=== PATIENT | female | born 1965 | race Caucasian/White ===

== ENCOUNTER 2023-03-26 19:42 | Emergency (ER) | payer BC, SELFPAY ==
[2023-03-26 19:43] VITALS: BP 159/111; PULSE 106; RESP 22; TEMP 36; O2SAT 94
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
[2023-03-26 20:11] VITALS: BMI 29.0
[2023-03-26] MEDS: Orphenadrine 60 MG/2 ML Ampul IM (20:22)
[2023-03-26] MEDS: Morphine 4 MG/ML Syringe IM (20:22)
--- NOTE | 2023-03-26 20:40 | RAD_ITS ---
INDICATION: Injury/Pain EXAMINATION/TECHNIQUE: X-RAY - XR Spine Lumbar 2 or 3 Views COMPARISON: None. FINDINGS: 2 views of the lumbar spine. BONES: Focal lower lumbar levoscoliosis with significant localized degenerative disc disease at this level. Suggestion of T11 vertebral body compression deformity. There may be T12 anterior superior endplate fracture deformity as well. No concerning bony lesion or abnormal sclerosis to suggest lesion. SOFT TISSUES: Few scattered air-fluid levels within nondilated bowel loops, suggesting mild ileus formation. RAD/Lumbar Spine 2 or 3 Views IMPRESSION: Suggestion of T11 vertebral body compression deformity. There may be T12 anterior superior endplate fracture deformity as well. This would be better evaluated with dedicated dedicated lumbar spine CT. Electronically Signed: Braden Rosas MD at 21:34 EST ,
--- NOTE | 2023-03-26 22:14 | CT_ITS ---
INDICATION: Compression fracture EXAMINATION: CT SPINE - CT Spine Lumbar W/O Contrast Injection COMPARISON: None. A radiation dose optimization technique was used for this scan. Radiation CTDIvol 14.44 Radiation DLP 405.22 Findings: Serial CT axial images through the lumbar spine, with coronal and sagittal reformatted series. BONES: Lower lumbar levoscoliosis. No evidence of lumbar spine fracture or subluxation. No concerning bony lesion or abnormal sclerosis to suggest lesion. DISCS/JOINTS: Lower lumbar degenerative change. SOFT TISSUES: Soft tissue structures are unremarkable. CT/Spine Lumbar without Contrast IMPRESSION: Lumbar spine without evidence of acute fracture. (Of note, lower thoracic area of concern mentioned on lumbar radiographs was excluded from [id number] by technologist.). Electronically Signed: Braden Rosas MD at 22:40 EST ,
--- NOTE | 2023-03-26 23:09 | CT_ITS ---
INDICATION: Compression fracture EXAMINATION: CT SPINE - CT Spine Thoracic W/O Contrast Injection COMPARISON: Lumbar spine CT and radiographs same day. A radiation dose optimization technique was used for this scan. Findings: Serial CT axial images through the thoracic spine, with coronal and sagittal reformatted series. BONES: Comminuted, minimally displaced fracture of the T11 vertebral body anterior superior endplate comminuted, with associated vertebral body height loss. No evidence of interval callus formation suggesting acute fracture. Subtle cortical irregularity of the anterior margin of the T12 vertebral body superior endplate as well consistent with fracture. SOFT TISSUES: Focal surrounding infiltration of the paraspinous fat as well, consistent with edema. 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 CT/Spine Thoracic without Contras IMPRESSION: Apparently acute T11 and T12 fractures as described above. Electronically Signed: Braden Rosas MD at 0:32 EST ,
--- NOTE | 2023-03-26 23:11 | RAD_ITS ---
INDICATION: Pain EXAMINATION/TECHNIQUE: X-RAY - XR Pelvis 1 or 2 Views COMPARISON: None. FINDINGS: Single frontal view of the pelvis. BONES: Lower lumbar levoscoliosis. Otherwise, anatomic alignment without evidence of fracture or subluxation. No concerning bony lesion or abnormal sclerosis to suggest lesion. JOINTS: Lower lumbar degenerative change. SOFT TISSUES: Unremarkable. RAD/Pelvis 1 or 2 Views IMPRESSION: No acute osseous abnormality of the pelvis. Electronically Signed: Braden Rosas MD at 0:34 EST ,
[2023-03-26] MEDS: HYDROmorphone 0.5 MG/0.5 ML SYRINGE IM (23:49)
== END 2023-03-27 01:13 | disposition home or self-care (01) ==
PROVIDERS: Emergency Provider Emergency Medicine; Visit Provider Emergency Medicine
DX: M48.54XA Collapsed vertebra, not elsewhere classified, thoracic region, initial encounter for fracture (principal); Z87.891 Personal history of nicotine dependence; V48.5XXA Car driver injured in noncollision transport accident in traffic accident, initial encounter
CPT/HCPCS: 72100; 72128; 72131; 72170; 96372; 99282